=== PATIENT | female | born 1995 | race African-American/Black ===

== ENCOUNTER 2022-10-26 19:18 | Emergency (ER) | payer BC, OTHER ==
[~2022-10-26] VITALS: Ht 157.5 cm; Wt 65.8 kg
[2022-10-26 19:32] VITALS: BP 106/73; TEMP 98.8; O2SAT 98
== END 2022-10-26 20:37 | disposition left against medical advice (07) ==
LOC: ER 19:31
DX: J02.9 Acute pharyngitis, unspecified (principal); R09.81 Nasal congestion; R50.9 Fever, unspecified